=== PATIENT | female | born 1980 | race African-American/Black ===

== ENCOUNTER 2016-06-18 07:35 | Emergency (ER) | payer BC ==
[2016-06-18 07:49] VITALS: BMI 36.4
[2016-06-18] MEDS ORDERED: AZITHROMYCIN 250 MG TAB PO ONE (08:16)
--- NOTE | 2016-06-18 08:19 | EDPRACDOC ---
- General Information Chief Complaint: Flu-Like Symptoms Stated Complaint: SINUS PAIN/SHOB Time Seen by Provider: 06/18/16 08:12 Information Source: Patient Home Medications: Home Medications Lisinopril/Hydrochlorothiazide [Zestoretic 20-25 mg Tablet] 1 tab PO DAILY 07/21 Multivits,Ca,Minerals/Iron/FA [Women's Daily Formula Caplet] 1 tab PO DAILY Amoxicillin 875 mg PO .BID X 10D 05/06/16 Azithromycin [Zithromax] 250 mg PO DAILY #6 tablet 06/18/16 Guaifenesin/Dm/Pseudoephedrine [Tussin Cold-Congestion Gelcap] 1 each PO Q6 #20 capsule 06/18/16 Allergies/Adverse Reactions: Allergies Allergy/AdvReac Type Severity Reaction Status Date / Time No Known Allergies Allergy Verified 06/18/16 07:47 - History of Present Illness Onset: 06/10 HPI: PATIENT PRESENTS C/O COUGH AND CONGESTION WITH RUNNY NOSE. COUGH NON PRODUCTIVE. RECENT SORE THROAT - GIVEN AMOXICILLIN AND SEEMED TO CLEAR UP Current Symptoms: Reports: Cough, Nasal Symptoms, Myalgia. Denies: Nausea, Vomiting Shortness of Breath: Mild Cough: Reports: Non-productive Rhinorrhea: Reports: Clear Ear Symptoms: Reports: None Fever Severity/Quality: Reports: no fever Oral Intake: Normal Urinary Output: Normal Associated Signs & Symptoms:: Reports: Cough, Nasal Symptoms ED Past Medical History - History Reviewed Yes Nurses notes reviewed and agree except as marked Travel Outside of [place] in the Last 3 Months?: No - Patient Medical History Cardiac History: Reports: Hypertension GI/ History: Denies: Urinary Tract Infection Psychological History: Denies: Depression Systemic History: Reports: Diabetes - Social Medical History Smoking Status: Never smoker ETOH: None Substance Abuse: None Lives With: Family Lives In: Home EDM Review of Systems - Review of Systems ROS Negative Except as Marked: Yes All systems reviewed and were negative except as marked Constitutional: No Symptoms Reported. negative: Fever, Chills, Weakness, Fatigue, Loss of Appetite Eyes: No Symptoms Reported. negative: Redness, Blurred Vision, Double Vision, Discharge, Pain, Light Sensitive, Photophobia Ears: No Symptoms Reported. negative: Pain, Hearing Loss, Drainage, Ear Pulling Throat: No Symptoms Reported. negative: Pain, Swelling Nose: Congestion, Discharge. negative: Abrasion, Bleeding, Deformity, Ecchymosis, Injection, Laceration, Swelling, Tender Mouth: No Symptoms Reported. negative: Pain, Drooling Respiratory: Cough. negative: Barky Cough, Brassy Cough, Hemoptysis, Shortness of Breath, Wheezing Cardiovascular: No Symptoms Reported. negative: Chest Pain, Palpitations, Syncope, Edema, Orthopnea, PND, Skin Mottling, Cyanosis Gastrointestinal: No Symptoms Reported. negative: Pain, Constipation, Nausea, Vomiting, Diarrhea, Melena, Formula Intolerance Genitourinary: No Symptoms Reported. negative: Dysuria, Hematuria, Frequency, Discharge, Bleeding, Testicular Pain, Neurological: No Symptoms Reported. negative: Headache, Dizziness, Seizure, Numbness, Weakness, Speech Difficulty, Gait Difficulty Musculoskeletal: No Symptoms Reported. negative: Neck, Chestwall, Ribs, Back, Shoulder, Arm, Elbow, Forearm, Wrist, Hand, Pelvis, Hip, Femur, Knee, Leg, Ankle , Foot Integumentary: No Symptoms Reported. negative: Itching, Rash, Bruising, Wound Allergic/Immunologic: No Symptoms Reported. negative: Hives, Itching Hematologic: No Symptoms Reported. negative: Lymphadenopathy, Easy Bruising, Easy Bleeding Endocrine: No Symptoms Reported. negative: Weight Gain, Weight Loss Psychiatric: No Symptoms Reported. negative: Anxiety, Depression, Hallucinations, Insomnia, Suicidal - Physical Exam Constitutional: Alert (Awake) Oriented to: Time, Person, Place Last recorded Vital Signs: Last Vital Signs Temp 98.6 F 06/18/16 07:47 Pulse 84 06/18/16 07:47 Resp 20 06/18/16 07:47 BP 126/74 06/18/16 07:47 Pulse Ox 100 06/18/16 07:47 Oxygen Pulse Oxygen Saturation 100 O2 Device Room Air Oxygen Flow Rate Fraction of Inspired Oxygen ( FIO2) - HEENT Head: Normal ( normocephalic) Eye Exam: Normal (PERRL, EOMI, Sclera white) Oropharynx: Normal (Pharynx:Moist without exudate,Gums-no swelling) Tympanic Membrane: Normal ENT EAC: Normal TMJ: Normal Nose: Discharge Neck: Normal (FROM, trachea at midline) - Respiratory/Cardiovascular Respiratory: Diminished Cardiovascular: Normal (RRR without murmur, gallop or rub) - GI Auscultation: Normal (NABS) Palpation: Normal (Soft,No rebound or guarding, non distended) Tenderness: Non tender Carias's Sign: Negative - Musculoskeletal Back: Normal (Non-Tender) Extremities: Normal (Normal tone, Pulses 2+ No cyanosis or edema, FROM) - Integumentary Skin: Normal, Warm, Dry Lymphatics: Normal (no adenopathy) - Neurologic Memory Impaired: Normal Motor Function: Normal (Normal tone, Pulses 2+ No cyanosis or edema, FROM) Cranial Nerve: Normal (CN II-X11 intact sensation, strength 5/5) Cerebellar: Normal Mood Description: Normal Perception: Normal - Departure Yes I personally saw and evaluated the patient. Disposition: Home Condition: Good Final Diagnosis: URI (upper respiratory infection) Qualifiers: URI type: unspecified URI Qualified Code(s): J06.9 - Acute upper respiratory infection, unspecified Instructions: Upper Respiratory Infection (ED) Education/Counseling Given To: Patient Education/Counseling Given Regarding: Diagnosis, Treatment, Prognosis, Follow Up Prescriptions: Azithromycin [Zithromax] 250 mg PO DAILY #6 tablet Guaifenesin/Dm/Pseudoephedrine [Tussin Cold-Congestion Gelcap] 1 each PO Q6 #20 capsule
--- NOTE | 2016-06-18 09:20 | DIRPT ---
CLINICAL DATA: Cough and congestion with runny nose EXAM: CHEST 2 VIEW COMPARISON: 05/06/2016 FINDINGS: Normal heart size and mediastinal contours. No acute infiltrate or edema. No effusion or pneumothorax. No acute osseous findings. IMPRESSION: Negative chest Electronically Signed By: Landon Fontana M.D. On: 06/18/2016 09:17
[2016-06-18 09:35] VITALS: BP 120/69; PULSE 82; TEMP 98.4
== END 2016-06-18 09:34 | disposition home or self-care (01) ==
LOC: ED 07:35
DX: J06.9 Acute upper respiratory infection, unspecified (principal); I10 Essential (primary) hypertension; E11.9 Type 2 diabetes mellitus without complications; Z79.899 Other long term (current) drug therapy
CPT/HCPCS: 71020; 81025; 99283; J3490